=== PATIENT | female | born 1995 | race African-American/Black ===

== ENCOUNTER 2018-04-09 20:30 | Inpatient (IN) | payer MEDICAID ==
[~2018-04-09] VITALS: Ht 167.6 cm; Wt 77.6 kg
[2018-04-09] MEDS ORDERED: MORPHINE SULFATE 4 MG/ML CPJ (NOT FOR IM USE) IV STA (22:55)
[2018-04-09] MEDS ORDERED: FAMOTIDINE 20MG/2ML VIAL IV STA (22:55)
[2018-04-09] MEDS ORDERED: ONDANSETRON HCL 4MG/2ML INJ IV STA (22:55)
[2018-04-09] MEDS ORDERED: SODIUM CHLORIDE 0.9% 1,000 ML IV ONE (22:55)
[2018-04-09] MEDS ORDERED: MORPHINE SULFATE 10 MG/ML CPJ IV NR (23:15)
[2018-04-09 23:31] LABS: HEMATOCRIT. 40.1 % (36.0-48.0); HEMOGLOBIN. 13.3 g/dL (12.0-16.0); MEAN CORPUSCULAR HEMOGLOBIN 29.7 pg (28.0-32.0); MEAN CORPUSCULAR VOLUME 89.3 fL (81.0-99.0); PLATELET 237 x1000/uL (130-400); RED BLOOD CELL COUNT 4.49 mill/uL (4.2-5.4); RED CELL DISTRIBUTION WIDTH 13.3 % (11.6-14.6)
[2018-04-10 00:03] LABS: HCG SCREEN NEGATIVE
[2018-04-10 00:28] LABS: PLATELET ESTIMATE NORMAL
[2018-04-10 01:13] LABS: CLARITY URINE CLEAR (CLEAR); COLOR URINE YELLOW (YELLOW); KETONES URINE 1+ (NEGATIVE); LEUKOCYTE ESTERASE URINE NEGATIVE (NEGATIVE); NITRITE URINE NEGATIVE (NEGATIVE); OCCULT BLOOD URINE NEGATIVE (NEGATIVE); PH URINE >=9.0 (4.5-8.0); PROTEIN URINE TRACE (NEGATIVE); SPECIFIC GRAVITY URINE 1.025 (1.005-1.030); UROBILINOGEN URINE 0.2 E.U./dL (0.2-1.0)
[2018-04-10 05:37] LABS: *AMPHETAMINES SCREEN URINE NEGATIVE (NEGATIVE); *BARBITURATES SCREEN URINE NEGATIVE (NEGATIVE); *BENZODIAZEPINES SCREEN URINE NEGATIVE (NEGATIVE); *COCAINE SCREEN URINE NEGATIVE (NEGATIVE); METHADONE URINE SCREEN NEGATIVE (NEGATIVE)
[2018-04-10 05:39] LABS: PHENCYCLIDINE URINE SCREEN NEGATIVE (NEGATIVE)
[2018-04-10 06:06] LABS: CANNABINOID URINE SCREEN PRESUMTIVE POSITIVE (NEGATIVE); OPIATES URINE SCREEN PRESUMTIVE POSITIVE (NEGATIVE)
[2018-04-10] MEDS ORDERED: HYDROMORPHONE HCL/PF 2MG/ML CPJ IV PRN (10:00)
[2018-04-10] MEDS ORDERED: ONDANSETRON HCL 4MG/2ML INJ IV PRN (10:00)
[2018-04-10 10:01] VITALS: BP 99/55
[2018-04-10 12:00] VITALS: BP 95/55
[2018-04-10] MEDS: PANTOPRAZOLE SODIUM 40 MG/VIAL IV SCH (16:00)
[2018-04-10] MEDS: SODIUM CHLORIDE 0.45% 1,000 ML IV SCH ×2 (16:00→18:15)
[2018-04-10 16:28] LABS: CHLORIDE 105 mEq/L (98-107)
[2018-04-10 16:36] LABS: ETHANOL BLOOD < 10 mg/dL
[2018-04-10 16:38] LABS: CREATINE KINASE 78 IU/L (26-192)
[2018-04-10 16:58] LABS: HEPATITIS B SURFACE ANTIGEN NEGATIVE
[2018-04-10 17:28] LABS: HEPATITIS A AB IGM NEGATIVE (NEGATIVE)
[2018-04-10] MEDS ORDERED: POTASSIUM CHLORIDE 20MEQ TABLET SR PO NR (18:50)
[2018-04-10 20:00] VITALS: BP 105/62
[2018-04-11] VITALS: BP 110/73
[2018-04-11 04:00] VITALS: BP 110/52
[2018-04-11 07:49] LABS: HEMATOCRIT. 38.6 % (36.0-48.0); HEMOGLOBIN. 12.7 g/dL (12.0-16.0); MEAN CORPUSCULAR HEMOGLOBIN 29.2 pg (28.0-32.0); MEAN PLATELET VOLUME 8.9 fl (7.4-10.4); PLATELET 233 x1000/uL (130-400); RED BLOOD CELL COUNT 4.34 mill/uL (4.2-5.4); RED CELL DISTRIBUTION WIDTH 13.2 % (11.6-14.6)
[2018-04-11 08:00] VITALS: BP 114/68
[2018-04-11 08:11] LABS: CHLORIDE 106 mEq/L (98-107)
[2018-04-11] MEDS: PANTOPRAZOLE SODIUM 40 MG/VIAL IV SCH (08:54)
[2018-04-11 09:30] LABS: PLATELET ESTIMATE NORMAL
[2018-04-11] MEDS ORDERED: PROT40 MT (10:46)
[2018-04-11 12:00] VITALS: BP 103/60
[2018-04-11 12:02] VITALS: BP 103/60
== END 2018-04-11 12:40 | disposition home or self-care (01) | DRG 469 ==
LOC: ER 20:30 → 6EST 04-10 05:00 → ENRESERV 04-10 08:13
PROVIDERS: ADMIT Internal Medicine; ATTEND Internal Medicine
DX: N17.9 Acute kidney failure, unspecified (principal); E87.2 Acidosis; K52.9 Noninfective gastroenteritis and colitis, unspecified; E86.0 Dehydration; E87.6 Hypokalemia; R74.0 Nonspecific elevation of levels of transaminase and lactic acid dehydrogenase [LDH]; F11.10 Opioid abuse, uncomplicated; F12.10 Cannabis abuse, uncomplicated; Z83.3 Family history of diabetes mellitus
CPT/HCPCS: 36415; 74176; 76705; 76770; 76830; 76856; 80048; 80076; 80305; 80307; 82550; 84703; 86705; 86709; 86803; 87340; 99285; C9113; G0482; J2270; J2405; J3490; J7030

== ENCOUNTER 2018-08-09 11:02 | Emergency (ER) | payer MEDICAID ==
[~2018-08-09] VITALS: Ht 167.6 cm; Wt 80.6 kg
[~2018-08-09 11:02] MED LIST: PROT40 MT
[2018-08-09 12:51] LABS: CLARITY URINE CLOUDY (CLEAR); COLOR URINE YELLOW (YELLOW); KETONES URINE NEGATIVE (NEGATIVE); LEUKOCYTE ESTERASE URINE 3+ (NEGATIVE); NITRITE URINE NEGATIVE (NEGATIVE); OCCULT BLOOD URINE 1+ (NEGATIVE); PH URINE 7.5 (4.5-8.0); PROTEIN URINE 2+ (NEGATIVE); SPECIFIC GRAVITY URINE 1.018 (1.005-1.030); UROBILINOGEN URINE 0.2 E.U./dL (0.2-1.0)
[2018-08-09] MEDS ORDERED: TRAMADOL 50MG TABLET PO ONE (13:00)
[2018-08-09] MEDS ORDERED: ONDANSETRON 4MG ODT PO ONE (13:00)
[2018-08-09] MEDS ORDERED: CEPHALEXIN 250MG CAPSULE PO ONE (13:00)
[2018-08-09] MEDS ORDERED: CEPHALEXIN 250MG CAPSULE ONE (13:10)
[2018-08-09 13:46] VITALS: BP 133/78
== END 2018-08-09 13:48 | disposition home or self-care (01) ==
LOC: ER 12:28
DX: N39.0 Urinary tract infection, site not specified (principal); F12.10 Cannabis abuse, uncomplicated
CPT/HCPCS: 81003; 81025; 87077; 87086; 87186; 99284; Q0162

== ENCOUNTER 2018-08-19 15:10 | Emergency (ER) | payer MEDICAID ==
[~2018-08-19] VITALS: Ht 167.6 cm; Wt 78.0 kg
[2018-08-19 15:35] VITALS: BP 122/82
== END 2018-08-19 17:52 | disposition home or self-care (01) ==
LOC: ER 15:43
DX: D24.1 Benign neoplasm of right breast (principal); F12.10 Cannabis abuse, uncomplicated; F32.9 Major depressive disorder, single episode, unspecified; Z87.440 Personal history of urinary (tract) infections; Z79.899 Other long term (current) drug therapy
CPT/HCPCS: 99281

== ENCOUNTER 2023-01-30 08:31 | Emergency (ER) | payer MEDICAID, OTHER ==
[~2023-01-30] VITALS: Ht 167.6 cm; Wt 93.0 kg
[2023-01-30 08:34] VITALS: O2SAT 100
[2023-01-30] MEDS ORDERED: HALOPERIDOL LACTATE 5MG/ML VIAL IM ONE (08:45)
[2023-01-30] MEDS ORDERED: SODIUM CHLORIDE 0.9% 1,000 ML IV ONE (08:45)
[2023-01-30] MEDS ORDERED: KETOROLAC 30MG/ML VIAL IV ONE (08:45)
[2023-01-30 09:04] LABS: BASOPHILS % 0.2 % (0.0-2.0); EOSINOPHILS % 0.3 % (0.0-5.0); HEMATOCRIT. 39.5 % (36.0-48.0); LYMPHOCYTES % 14.9 % (20.0-50.0); MEAN CORPUSCULAR HEMOGLOBIN 29.2 pg (28.0-32.0); MEAN CORPUSCULAR VOLUME 88.4 fL (81.0-99.0); MEAN PLATELET VOLUME 8.2 fl (7.4-10.4); MONOCYTES % 10.4 % (2.0-8.0); NEUTROPHILS % 74.2 % (40.0-76.0); PLATELET 315 x1000/uL (130-400); RED BLOOD CELL COUNT 4.47 mill/uL (4.2-5.4); RED CELL DISTRIBUTION WIDTH 13.2 % (11.6-14.6); WHITE BLOOD COUNT 5.6 x1000/uL (4.5-11.0)
[2023-01-30 09:13] LABS: CHLORIDE 107 mEq/L (98-107); INDEX HEMOLYSI 1 (1-3); INDEX ICTERIC 1 (1-4); INDEX LIPEMIC 1 (1-3); POTASSIUM 3.9 mEq/L (3.5-5.1); SODIUM 137 mEq/L (136-145)
[2023-01-30 09:20] LABS: HCG SCREEN NEGATIVE
[2023-01-30 09:21] LABS: ALANINE AMINOTRANSFERASE 16 IU/L (13-61); ALBUMIN 3.5 g/dL (3.4-5.0); ASPARTATE AMINOTRANSFERASE 16 IU/L (15-37); BILIRUBIN TOTAL 0.4 mg/dL (0.1-1.0); CALCIUM 8.8 mg/dL (8.5-10.1); CARBON DIOXIDE 24 mEq/L (21-32); CREATININE 0.6 mg/dL (0.6-1.3); GLUCOSE 97 mg/dL (70-105); PROTEIN TOTAL 7.8 g/dL (6.0-8.3); UREA NITROGEN BLOOD 10 mg/dL (7-21)
[2023-01-30 09:38] LABS: CLARITY URINE CLEAR (CLEAR); COLOR URINE YELLOW (YELLOW); GLUCOSE URINE NEGATIVE (NEGATIVE); KETONES URINE NEGATIVE (NEGATIVE); LEUKOCYTE ESTERASE URINE NEGATIVE (NEGATIVE); NITRITE URINE NEGATIVE (NEGATIVE); OCCULT BLOOD URINE NEGATIVE (NEGATIVE); PH URINE 6.5 (4.5-8.0); PROTEIN URINE NEGATIVE (NEGATIVE); SPECIFIC GRAVITY URINE 1.026 (1.005-1.030); UROBILINOGEN URINE 0.2 E.U./dL (0.2-1.0)
[2023-01-30] MEDS ORDERED: ONDANSETRON HCL 4MG/2ML INJ IV ONE (09:45)
[2023-01-30 10:45] VITALS: BP 138/88; PULSE 88; RESP 18; TEMP 98.7
== END 2023-01-30 10:56 | disposition home or self-care (01) ==
LOC: ER 08:38
DX: R11.10 Vomiting, unspecified (principal); F12.10 Cannabis abuse, uncomplicated
CPT/HCPCS: 36415; 80053; 81003; 81025; 84703; 85025; 96361; 96372; 96374; 96375; 99284; J1630; J1885; J2405; J7030

== ENCOUNTER 2023-12-24 19:38 | Emergency (ER) | payer OTHER ==
[~2023-12-24] VITALS: Ht 167.6 cm; Wt 90.6 kg
[2023-12-24 19:54] VITALS: TEMP 97.7; O2SAT 100
[2023-12-24] MEDS ORDERED: TETANUS, DIPHTHERIA, PERTUSSIS VAC/PF 0.5ML (>10YR OLD) IM ONE (22:15)
[2023-12-24] MEDS ORDERED: AMOX1TAB16 MT (23:05)
[2023-12-25 00:22] VITALS: BP 126/78; PULSE 78; RESP 18; O2SAT 99
[2023-12-25] MEDS: TETANUS, DIPHTHERIA, PERTUSSIS VAC/PF 0.5ML (>10YR OLD) IM ONE (00:23)
== END 2023-12-25 00:22 | disposition home or self-care (01) ==
LOC: ER 19:38
DX: S61.234A Puncture wound without foreign body of right ring finger without damage to nail, initial encounter (principal); W54.0XXA Bitten by dog, initial encounter; Y93.89 Activity, other specified; Y92.89 Other specified places as the place of occurrence of the external cause; Y99.8 Other external cause status
CPT/HCPCS: 73140; 99283; 90715; 90471; Z7610

== ENCOUNTER 2024-06-26 00:19 | Emergency (ER) | payer OTHER ==
[~2024-06-26] VITALS: Ht 167.6 cm; Wt 90.0 kg
[~2024-06-26 00:19] MED LIST changes: +AMOX1TAB16 MT
[2024-06-26 00:34] VITALS: O2SAT 100
[2024-06-26 01:16] VITALS: BP 105/70; PULSE 82; RESP 14; TEMP 37; O2SAT 100
== END 2024-06-26 01:17 | disposition home or self-care (01) ==
LOC: ER 00:28
DX: S61.452A Open bite of left hand, initial encounter (principal); F12.10 Cannabis abuse, uncomplicated; Z79.899 Other long term (current) drug therapy; W54.0XXA Bitten by dog, initial encounter; Y93.89 Activity, other specified; Y92.89 Other specified places as the place of occurrence of the external cause; Y99.8 Other external cause status
CPT/HCPCS: 99283